=== PATIENT | female | born 1965 | race African-American/Black ===

== ENCOUNTER 2016-02-26 10:52 | Emergency (ER) | payer OTHER ==
[~2016-02-26] VITALS: Ht 162.6 cm; Wt 81.8 kg
[~2016-02-26 10:52] MED LIST: PERCOCET 5/31 TABLET PO; VICODIN,LORT1 TABLET PO
[2016-02-26] MEDS ORDERED: NORCO 5/3251 TABLET PO (14:06)
[2016-02-26 15:09] VITALS: BP 00/00
== END 2016-02-26 15:10 | disposition home or self-care (01) ==
LOC: EME 10:52 → EXP 10:52
PROC: 0RSLXZZ Reposition Right Elbow Joint, External Approach (ICD-10-PCS; principal; 2016-02-26)
DX: S53.104A Unspecified dislocation of right ulnohumeral joint, initial encounter (principal); W00.0XXA Fall on same level due to ice and snow, initial encounter
CPT/HCPCS: 73070; 73080; 99281; 99283; J1170